=== PATIENT | female | born 1945 | race Caucasian/White ===

== ENCOUNTER 2017-01-12 13:37 | Observation (INO) ==
[2017-01-12] MEDS ORDERED: IOPAMIDOL 100 ML BOTTLE IJ ONE (13:38)
--- NOTE | 2017-01-12 14:18 | Cat Scan Report ---
CLINICAL INFORMATION: Code stroke. Right-sided weakness COMPARISON: None. TECHNIQUE: Axial noncontrast-enhanced images through the brain. FINDINGS: No acute intracranial hemorrhage. No subdural hematoma. No subarachnoid hemorrhage. No intra-axial hematoma. No localized mass effect or midline shift. There is a focal infarction in the head of the right caudate nucleus. There is a lacunar infarction in the right thalamus. These appear relatively well-defined and are probably not acute. Patient's symptoms are right-sided and these lesions should not be causative. No other focal intra-axial attenuation abnormalities. No detectable localized edema. Brainstem and cerebellum are negative. Basilar cisterns are normal. No hyperdense middle cerebral artery sign. No calvarial fracture. There is a lucency at the vertex which is probably a benign venous sam. Temporal bones are negative. IMPRESSION: 1. Not acute right caudate and thalamic infarctions 2. No other abnormality Interpreted and Authenticated by: Nicolás Rodarte 01/12/17
[2017-01-12 14:22] LABS: Basophils # (Auto) 0.1 K/mcL (0.0-0.3); Eosinophils # (Auto) 0.1 K/mcL (0.0-0.7); Eosinophils % (Auto) 1.9 % (0.0-7.0); Granulocytes % (Auto) 48.5 % (38.0-78.0); Lymphocytes # (Auto) 2.2 K/mcL (1.5-4.8); Lymphocytes % (Auto) 40.9 % (15.5-49.0); Mean Cell Volume 86.9 fL (80.0-100.0); Mean Corpuscular HGB Conc 33.6 g/dL (31.0-36.0); Mean Corpuscular Hemoglobin 29.2 pg (26.0-34.0); Monocytes # (Auto) 0.4 K/mcL (0.1-0.9); Monocytes % (Auto) 7.7 % (1.0-12.0); Platelet Count 242 K/mcL (140-440); RBC 4.74 M/mcL (4.00-5.20); Red Cell Distribution Width 14.8 % (11.5-14.5)
[2017-01-12 14:40] LABS: ALT/SGPT 12 U/l (0-40); Albumin/Globulin Ratio 1.6 (1.0-2.3); Alkaline Phosphatase 62 U/L (39-117); Blood Urea Nitrogen 21 mg/dl (8-23)
[2017-01-12 15:17] LABS: Appearance,Urine CLEAR; Bilirubin,Urine NEG (NEG); Color,Urine STRAW; Glucose,Urine (UA) NEGATIVE (NEG); Leukocyte Esterase,Urine NEG /uL (NEG); Nitrate,Urine NEG (NEG); Protein,Urine NEG (NEG); Specific Gravity,Urine 1.006 (1.000-1.035); Urine Blood NEG mg/dL (<0.03); Urobilinogen,Urine NEG (NEG)
[2017-01-12 15:25] LABS: Amphetamine Screen,Urine NONE DETECTED (NONDETECTED); Benzodiazepines Screen,Urine NONE DETECTED (NONDETECTED); Cocaine Screen,Urine NONE DETECTED (NONDETECTED); Opiate Screen,Urine NONE DETECTED (NONDETECTED); Oxycodone, Urine Screen NONE DETECTED (NONDETECTED)
--- NOTE | 2017-01-12 16:14 | Cat Scan Report ---
CLINICAL INFORMATION: Stroke symptoms. Slurred speech TECHNIQUE: 80 mL nonionic contrast material injected intravenously. Axial images through the neck. Scanning performed during arterial phase. MIP and CPR images reviewed COMPARISON: Noncontrast enhanced brain CT scan dated 01/12/2017 FINDINGS: Aortic arch is normal. Origins of the left subclavian artery, left common carotid artery, and nominal artery, right common carotid artery, right subclavian artery are normal. No stenosis. Vertebral arteries are negative. Left vertebral artery is larger than the right. No stenosis or occlusion. Internal carotid arteries are tortuous bilaterally. No significant atherosclerotic plaque. No stenosis. No evidence for ulceration. No cervical soft tissue mass. No solid or cystic mass. Lung apices are negative. Severe degenerative disc disease in the cervical spine. There is reversal of normal cervical lordosis IMPRESSION: Negative carotid CTA. No significant atherosclerotic plaque. No ulceration or stenosis. Interpreted and Authenticated by: Nicolás Rodarte 01/12/17
--- NOTE | 2017-01-12 16:15 | Cat Scan Report ---
CLINICAL INFORMATION: Slurred speech. Code stroke TECHNIQUE: 80 mL nonionic contrast material injected intravenously. Axial images through the brain during arterial phase. MIP reformatted images COMPARISON: Noncontrast enhanced brain CT scan dated 01/12/2017 FINDINGS: Distal cervical, petrous, cavernous, supraclinoid segments of the internal carotid arteries are negative bilaterally. No stenosis. No significant calcification. M1 segments of the middle cerebral arteries and A1 segments of the anterior cerebral arteries are negative. Intracranial vertebral arteries and basilar artery are negative. No stenosis. History cerebral arteries appear normal. No detectable occluded branch. No aneurysm. No arteriovenous malformation. IMPRESSION: Negative MRA of the [place] Interpreted and Authenticated by: Nicolás Rodarte 01/12/17
[2017-01-12] MEDS ORDERED: ATORVASTATIN 40 MG TABLET PO ONE (17:17)
[2017-01-12] MEDS ORDERED: ASPIRIN 325 MG ENTERIC COATED TABLET PO ONE (17:17)
--- NOTE | 2017-01-12 17:18 | Emergency Department Note ---
Neuro HPI - General Chief Complaint: Stroke Symptoms Stated Complaint: Right sided weakness, confusion. Time Seen by Provider: 01/12/17 17:05 Source: patient Mode of arrival: ambulatory Limitations: no limitations - History of Present Illness HPI Narrative: This pleasant 71-year-old female presented to the emergency room in the afternoon having a history of difficulty speaking even near complete difficulty plus surrounding that time some slurred speech. Onset she thought was around 930. indicates that he first noticed this around 615 or 630. She had awoken earlier than this around 530 and it was not noted then. She also complains of dizziness and right arm weakness. She believes her cholesterol has been fine. She has had some right arm pain as well. She denies being on any sleep or medication. She knows of no history of previous stroke, heart disease, diabetes or hypertension. Patient usually takes medications in the morning. wondered if there was a possibility that she might have taken some of his medications but she denies this. - Related Data Home Medications: Home Medications Medication Instructions Recorded Confirmed Amitriptyline [Elavil] 50 mg PO DAILY 01/12/17 01/12/17 Cetirizine [ZyrTEC] 10 mg PO DAILY 01/12/17 01/12/17 Estradiol [Estrace] 1 mg PO PRN PRN 01/12/17 01/12/17 Sertraline HCl [Zoloft] 100 mg PO DAILY 01/12/17 01/12/17 Allergies/Adverse Reactions: Allergies Allergy/AdvReac Type Severity Reaction Status Date / Time nitrofurantoin Allergy Unknown Itching, Verified 06/05/16 15:49 [NITROFURANTOIN] SWELLING Review of Systems Review of Systems: Patient denies dysuria, nausea, vomiting, diarrhea, constipation, cough, phlegm , wheezing, shortness of breath, chest pain, palpitations, heat or cold intolerance, weight changes. She has had some anxiety in the past treated with sertraline but this has improved and she now takes sertraline for her bladder irritation/urgency which is worse in the morning and is due to interstitial cystitis. 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 Absent: tenderness, lymphadenopathy - Respiratory Respiratory exam: Present: normal lung sounds bilaterally. Absent: respiratory distress, wheezes, stridor, accessory muscle use - Cardiovascular Cardiovascular exam: Present: regular rate, normal rhythm. Absent: systolic murmur, diastolic murmur - Abdominal Exam Abdominal exam: Present: soft. Absent: distention, tenderness, guarding, rebound, rigidity - Extremities Exam Extremities exam: Present: normal capillary refill. Absent: pretibial edema - Neurological Exam Neurological exam: Present: alert, oriented X3 - Expanded Neurological Exam Patient oriented to: Present: person, place, time Cerebellar function: finger to nose: Abnormal Right, heel to ambriz: Abnormal Right Motor strength - LUE: 4/5 Motor strength - RUE: 2/5 Motor strength - LLE: 4/5 Motor strength - RLE: 4/5 Upper motor neuron exam: zainab neglect: Absent bilaterally, sensory extinction: Absent bilaterally Sensory exam upper extremity: Normal: light touch, pin prick Sensory exam lower extremity: Normal: light touch, pin prick - Psychiatric Psychiatric exam: Present: flat affect (Mildly). Absent: depressed, agitated - Skin Skin exam: Present: warm, dry Course Vital Signs Temperature 97.1 F 01/12/17 13:38 Pulse Rate 83 01/12/17 13:38 Respiratory Rate 20 01/12/17 13:38 Blood Pressure 114/68 01/12/17 13:38 Pulse Oximetry (%) 98 01/12/17 13:38 Temperature 97.1 F 01/12/17 13:38 Pulse Rate 78 01/12/17 17:11 Respiratory Rate 19 01/12/17 17:11 Blood Pressure 109/65 01/12/17 17:01 Pulse Oximetry (%) 97 01/12/17 17:11 Neuro Symptoms/Deficit - [facility] Narrative Medical decision making narrative: I initially saw patient around 1:45 PM with examination as documented above. She exhibited no change in her findings or symptoms change remaining somewhat to moderately drowsy and right arm weakness and moderate slurred speech but her speech was normal and content and understandable. Eyes remained conjugate. She seemed to understand all very well and was able to communicate relatively well. She denied use of medications except her own. 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 These were not thought to represent her current deficits. Case was discussed with tele-neurology with conclusion that she was outside a window for TPA and that to rule out larger vessel and the possibility of intervention CTA of the head neck would be the next step and these were done and these took a while to come back and were found to be negative. Given that her symptoms are new and no specific findings, additional workup to be considered including echo and/or MRI plus again anticoagulation with at least aspirin suggested and discussed with hospitalist who agrees to accept the patient and to do the additional needed monitoring and/or workup and/or treatment. With patient's drowsiness being significant, a urine drug screen was also obtained and was unremarkable. OF NOTE IS THAT PATIENT IS ON ESTRACE AND THIS MAY BE A POSSIBLE CONSIDERATION IN HER CAUSATIVE FACTORS AND CONSIDER FUTURE DISCONTINUATION. Patient is being admitted to a monitored bed in this hospital. - Lab Data Lab results reviewed: Yes I reviewed the patient's lab results. Result diagrams: 01/12/17 13:58 01/12/17 13:57 Lab Results 01/12/17 01/12/17 01/12/17 Range/Units 13:57 13:58 13:58 WBC 5.4 (4.5-11.0) K/mcL RBC 4.74 (4.00-5.20) M/mcL Hgb 13.8 (12.0-15.0) g/dL Hct 41.1 (36.0-48.0) % POC Hct 41.0 (36.0-48.0) % MCV 86.9 (80.0-100.0) fL MCH 29.2 (26.0-34.0) pg MCHC 33.6 (31.0-36.0) g/dL RDW 14.8 H (11.5-14.5) % Plt Count 242 (140-440) K/mcL MPV 8.6 (7.4-10.4) fL Gran % 48.5 (38.0-78.0) % Lymph % (Auto) 40.9 (15.5-49.0) % [place] % (Auto) 7.7 (1.0-12.0) % Eos % (Auto) 1.9 (0.0-7.0) % Baso % (Auto) 1.0 (0.0-2.0) % Gran # 2.6 (1.8-8.0) K/mcL Lymph # (Auto) 2.2 (1.5-4.8) K/mcL [place] # (Auto) 0.4 (0.1-0.9) K/mcL Eos # (Auto) 0.1 (0.0-0.7) K/mcL Baso # (Auto) 0.1 (0.0-0.3) K/mcL POC PT (11.9-14.5) sec POC INR (0.9-1.2) APTT (20-37) sec POC Sodium 139 (133-145) mmol/L Sodium 140 (133-145) mmol/L POC Potassium 4.0 (3.3-5.1) mmol/L Potassium 4.2 (3.3-5.1) mmol/L POC Chloride 104 (96-108) mmol/L Chloride 105 (96-108) mmol/L Carbon Dioxide 24 (22-30) mmol/L POC Total CO2 26 (22-30) mmol/L Anion Gap 11.0 (8-16) POC BUN 22 (8-23) mg/dl BUN 21 (8-23) mg/dl Creatinine 0.8 (0.6-1.1) mg/dl POC Creatinine 0.8 (0.6-1.1) mg/dl GFR Calculation 75 Glucose 107 H (70-105) mg/dL POC Glucose 105 (70-105) mg/dL Calcium 9.3 (8.6-10.4) mg/dl POC WB Ioniz Calcium 1.27 (1.16-1.32) mmol/L Total Bilirubin 0.3 (0.0-1.0) mg/dL AST 17 (0-37) U/l ALT 12 (0-40) U/l Alkaline Phosphatase 62 (39-117) U/L Troponin T < 0.01 (0-0.03) ng/ml Total Protein 6.5 (5.9-8.4) gm/dL Albumin 4.0 (3.2-5.2) gm/dL Globulin 2.5 (2.2-3.7) gm/dL Albumin/Globulin Ratio 1.6 (1.0-2.3) Urine Color Urine Appearance Urine pH (5.0-9.0) Ur Specific [place] (1.000-1.035) Urine Protein (NEG) mg/dL Urine Glucose (UA) (NEG) mg/dL Urine Ketones (NEG) mg/dL Urine Occult Blood (<0.03) mg/dL Urine Nitrate (NEG) Urine Bilirubin (NEG) mg/dL Urine Urobilinogen (NEG) mg/dL Ur Leukocyte Esterase (NEG) /uL Ur Culture Indicated? Urine Opiates Screen (NONDETECTED) Ur Oxycodone Screen (NONDETECTED) Urine Methadone Screen (NONDETECTED) Ur Barbiturates Screen (NONDETECTED) Ur Phencyclidine Scrn (NONDETECTED) Ur Amphetamines Screen (NONDETECTED) U Benzodiazepines Scrn (NONDETECTED) Urine Cocaine Screen (NONDETECTED) U Marijuana (THC) Screen (NONDETECTED) 01/12/17 01/12/17 01/12/17 Range/Units 14:18 14:43 14:43 WBC (4.5-11.0) K/mcL RBC (4.00-5.20) M/mcL Hgb (12.0-15.0) g/dL Hct (36.0-48.0) % POC Hct (36.0-48.0) % MCV (80.0-100.0) fL MCH (26.0-34.0) pg MCHC (31.0-36.0) g/dL RDW (11.5-14.5) % Plt Count (140-440) K/mcL MPV (7.4-10.4) fL Gran % (38.0-78.0) % Lymph % (Auto) (15.5-49.0) % [place] % (Auto) (1.0-12.0) % Eos % (Auto) (0.0-7.0) % Baso % (Auto) (0.0-2.0) % Gran # (1.8-8.0) K/mcL Lymph # (Auto) (1.5-4.8) K/mcL [place] # (Auto) (0.1-0.9) K/mcL Eos # (Auto) (0.0-0.7) K/mcL Baso # (Auto) (0.0-0.3) K/mcL POC PT 14.1 (11.9-14.5) sec POC INR 1.2 (0.9-1.2) APTT 30 (20-37) sec POC Sodium (133-145) mmol/L Sodium (133-145) mmol/L POC Potassium (3.3-5.1) mmol/L Potassium (3.3-5.1) mmol/L POC Chloride (96-108) mmol/L Chloride (96-108) mmol/L Carbon Dioxide (22-30) mmol/L POC Total CO2 (22-30) mmol/L Anion Gap (8-16) POC BUN (8-23) mg/dl BUN (8-23) mg/dl Creatinine (0.6-1.1) mg/dl POC Creatinine (0.6-1.1) mg/dl GFR Calculation Glucose (70-105) mg/dL POC Glucose (70-105) mg/dL Calcium (8.6-10.4) mg/dl POC WB Ioniz Calcium (1.16-1.32) mmol/L Total Bilirubin (0.0-1.0) mg/dL AST (0-37) U/l ALT (0-40) U/l Alkaline Phosphatase (39-117) U/L Troponin T (0-0.03) ng/ml Total Protein (5.9-8.4) gm/dL Albumin (3.2-5.2) gm/dL Globulin (2.2-3.7) gm/dL Albumin/Globulin Ratio (1.0-2.3) Urine Color Straw Urine Appearance Clear Urine pH 6.0 (5.0-9.0) Ur Specific [place] 1.006 (1.000-1.035) Urine Protein Neg (NEG) mg/dL Urine Glucose (UA) Negative (NEG) mg/dL Urine Ketones Neg (NEG) mg/dL Urine Occult Blood Neg (<0.03) mg/dL Urine Nitrate Neg (NEG) Urine Bilirubin Neg (NEG) mg/dL Urine Urobilinogen Neg (NEG) mg/dL Ur Leukocyte Esterase Neg (NEG) /uL Ur Culture Indicated? No Urine Opiates Screen None detected (NONDETECTED) Ur Oxycodone Screen None detected (NONDETECTED) Urine Methadone Screen None detected (NONDETECTED) Ur Barbiturates Screen None detected (NONDETECTED) Ur Phencyclidine Scrn None detected (NONDETECTED) Ur Amphetamines Screen None detected (NONDETECTED) U Benzodiazepines Scrn None detected (NONDETECTED) Urine Cocaine Screen None detected (NONDETECTED) U Marijuana (THC) Screen None detected (NONDETECTED) - EKG Data EKG attestation: Yes I reviewed and interpreted this EKG. Disposition Pt seen by [employer] SUPERINTENDENT/PA only: No Clinical Impression: Acute CVA (cerebrovascular accident), History of CVA (cerebrovascular accident) , Drowsiness Disposition: Xfer As Inpt ([facility]) Condition: Fair Referrals: Lisa Henry MD [Primary Care Provider] -
[2017-01-12] MEDS ORDERED: POTASSIUM CHLORIDE 20 MEQ PACKET PO PRN (19:19)
[2017-01-12] MEDS ORDERED: 0.9 % SODIUM CHLORIDE 1,000 ML IV SCH (19:19)
[2017-01-12] MEDS ORDERED: ACETAMINOPHEN 1,000 MG/100 ML BOTTLE IV PRN (19:19)
[2017-01-12] MEDS ORDERED: ONDANSETRON 4 MG/2 ML VIAL IV PRN (19:19)
[2017-01-12] MEDS ORDERED: MAGNESIUM HYDROXIDE 30 ML ORAL.SUSP PO PRN (19:19)
[2017-01-12] MEDS ORDERED: guaiFENesin/CODEINE 10 ML UDC PO PRN (19:19)
[2017-01-12] MEDS ORDERED: traZODone HCL 50 MG TABLET PO PRN (19:19)
[2017-01-12] MEDS ORDERED: BISACODYL 10 MG SUPP.RECT PR PRN (19:19)
[2017-01-12] MEDS ORDERED: MAGNESIUM SULFATE 2 GM/50 ML BAG IV PRN (19:19)
[2017-01-12] MEDS ORDERED: ACETAMINOPHEN 325 MG TABLET PO PRN (19:19)
--- NOTE | 2017-01-12 19:32 | Internal Med History&Physical ---
Medical - H&P: [facility] Patient information: Note initiated : 01/12/17 at 7:28 pm Service Date, if different from initiated Date: [] Patient: Hailey Luis a 71 y/o F admitted on 01/12/17 for Right sided weakness, confusion.. Chief Complaint: [] Chief complaint: right sided weakness History of present illness: Ms. Luis is a 71 year old F who developed right-sided weakness confusion and difficulty balancing that started around 9 AM this morning. She had associated slurred speech. [facility]. nitial workup including CT angiogram head and neck along with CT head was negative.patient was started on aspirin and statin. Stroke neurology was consulted and per ED physician patient would not the candidate for TPA. Patient 's symptoms have significantly improved in the ED Hospitalist service was then consulted For admission and TIA evaluation. ppetite examination patient is alert oriented. She denies any active distress. She is accompanied with her wIll. however he was not available during my visit. Patient is able to answer most of the questions however there wasoccasional slurring of speech. She denies thunderclap headache unilateral weakness, fall, seizure-like episode, double vision. She further denies hearing difficulties the weight loss gland or swelling. She denies recent NSAID or sick contacts. She denies chest palpitations during neck pain or prior similar episodes. Review of systems A 10 point review systems was performed and is negative except as discussed above Medical - H&P: PMH Medical history: neuropathy seasonal allergy disorder anxiety disorder Pertinent family history: grandfather coronary artery disease Social history: lives with will No history of smoking or alcoholism Smoking status: Never smoker Drug use: none Alcohol use: none Medical - H&P: Meds Home Medications Medication Instructions Recorded Confirmed Type Amitriptyline [Elavil] 50 mg PO DAILY 01/12/17 01/12/17 History Cetirizine [ZyrTEC] 10 mg PO DAILY 01/12/17 01/12/17 History Estradiol [Estrace] 1 mg PO PRN PRN 01/12/17 01/12/17 History Sertraline HCl [Zoloft] 100 mg PO DAILY 01/12/17 01/12/17 History Allergies Allergy/AdvReac Type Severity Reaction Status Date / Time nitrofurantoin Allergy Unknown Itching, Verified 06/05/16 15:49 [NITROFURANTOIN] SWELLING Medical - H&P: Exam - Constitutional Vitals: Temp Pulse Resp BP Pulse Ox 97.1 F 87 16 120/57 99 01/12/17 18:48 01/12/17 18:48 01/12/17 18:48 01/12/17 18:48 01/12/17 18:48 General appearance: no acute distress, thin Exam: pupils symmetric oral cavity dry No ear or nose discharge Head normocephalic. Atraumatic neck submandibular lymphadenopathy S1 and [id number] nonlabored breathing Abdomen soft No cyanosis clubbing or joint swelling No suspicious skin lesion Alert cooperative no anxiety Neuro normal heart function Minimally slurred speech cranial nerves unremarkable symmetrical strength and sensation cerebellar signs negative Medical - H&P: Reslt - Labs CBC & Chem 7: 01/12/17 13:58 01/12/17 13:57 Medical - H&P: A/P (1) History of CVA (cerebrovascular accident) Current visit: Yes Status: Acute * Acute CVA/TIAcT head unremarkable except for right thalamic remote infarct.mRI brain/Echo pendingCT angiogram head and neck negative. Telemetry observation admit. Aggressive bowel protocol. Aspirin statin * Anxiety disorder continue sertraline/amitriptyline * Full code Plan * Stroke workup as above * Aspirin and statin
[2017-01-12] MEDS ORDERED: SENNOSIDES/DOCUSATE SODIUM 1 TAB TABLET PO SCH (21:00)
[2017-01-12] MEDS ORDERED: AMITRIPTYLINE 25 MG TABLET PO SCH (21:00)
[2017-01-12] MEDS ORDERED: SIMVASTATIN 40 MG TABLET PO SCH (21:00)
[2017-01-12] MEDS: DOCUSATE SODIUM 100 MG CAPSULE PO SCH (21:29)
[2017-01-12] MEDS: 0.9 % SODIUM CHLORIDE 10 ML SYRINGE IV SCH (21:29)
[2017-01-13] MEDS: 0.9 % SODIUM CHLORIDE 10 ML SYRINGE IV SCH (05:17)
[2017-01-13 06:40] LABS: Mean Cell Volume 87.6 fL (80.0-100.0); Mean Corpuscular HGB Conc 34.2 g/dL (31.0-36.0); Mean Corpuscular Hemoglobin 29.9 pg (26.0-34.0); Platelet Count 223 K/mcL (140-440); RBC 4.26 M/mcL (4.00-5.20); Red Cell Distribution Width 14.9 % (11.5-14.5)
[2017-01-13 06:55] LABS: ALT/SGPT 10 U/l (0-40); Albumin 3.4 gm/dL (3.2-5.2); Albumin/Globulin Ratio 1.5 (1.0-2.3); Alkaline Phosphatase 52 U/L (39-117); Bilirubin,Direct < 0.2 mg/dL (0.0-0.3); Blood Urea Nitrogen 27 mg/dl (8-23); Gamma Glutamyl Transpeptidase 12 U/L (5-36); Magnesium 1.9 mg/dL (1.6-2.5)
[2017-01-13 08:07] LABS: Eosinophils % (Manual) 1 % (0-7); Lymphocytes % 40 % (15-49); Monocytes % (Manual) 11 % (1-12); Myelocytes % 1 % (0-0); Platelet Estimate NORMAL (NORMAL); RBC Morphology NORMAL (NORMAL); Segmented Neutrophils % 45 % (38-78)
[2017-01-13] MEDS: DOCUSATE SODIUM 100 MG CAPSULE PO SCH (08:26)
[2017-01-13] MEDS ORDERED: ASPIRIN 81 MG TAB.CHEW CHEWED SCH (09:00)
[2017-01-13] MEDS ORDERED: SERTRALINE 50 MG TABLET PO SCH (09:00)
[2017-01-13] MEDS ORDERED: CETIRIZINE 10 MG TABLET PO SCH (09:00)
[2017-01-13] MEDS ORDERED: MULTIVIT,THER IRON,CA,FA & MIN 1 TABLET PO SCH (09:00)
--- NOTE | 2017-01-13 09:46 | Magnetic Resonance Report ---
CLINICAL INFORMATION: Right-sided numbness. Possible cerebral infarction TECHNIQUE: Sagittal, axial, coronal images of the brain COMPARISON: Previous CT and CTA dated 01/12/2017 FINDINGS: No restricted diffusion. No acute infarction. No significant susceptibility. No hemorrhagic abnormality. FLAIR and T2-weighted images demonstrate white matter abnormality in both cerebral hemispheres. There are multiple foci of increased signal intensity in the subcortical and periventricular white matter. In the periventricular white matter there are focal abnormalities which are perpendicularly oriented to the ventricular surfaces. Findings are nonspecific. Clinical correlation for history of demyelinating disease recommended. Findings may also be due to a small vessel ischemic change or vasculitis. Findings are abnormal for age. No localized mass effect. No midline shift. Brain volume is within normal limits. No hydrocephalus. Focal signal abnormality within the right cerebellar hemisphere consistent with old infarction. No acute abnormalities. Brainstem is negative. No extra-axial, intracranial abnormality. Normal flow void within vessels at the base of the brain. Paranasal sinuses and temporal bones are negative IMPRESSION: 1. No acute infarction 2. White matter abnormality. Demyelinating is possible. Findings are nonspecific Interpreted and Authenticated by: Nicolás Rodarte 01/13/17
--- NOTE | 2017-01-13 10:34 | Discharge Summary ---
Medical - DS: Prov Patient information: Note initiated : 01/13/17 at 10:31 am Service Date, if different from initiated Date: [] Patient: Hailey Luis 71 y/o F admitted on 01/12/17 for Right sided weakness, confusion.. Chief Complaint: [] Date of admission: 01/12/17 19:08 Discharge date: 01/13/17 Primary care physician: Lisa Henry Medical - DS: Meds - Discharge Medications Prescriptions: Aspirin 324 mg CHEWED DAILY #30 Simvastatin [Zocor] 40 mg PO HS #30 tablet Active and Home Medications: Home Medications Amitriptyline [Elavil] 50 mg PO DAILY 01/12/17 [History Confirmed 01/12/17 Last Taken Unknown] Cetirizine [ZyrTEC] 10 mg PO DAILY 01/12/17 [History Confirmed 01/12/17 Last Taken Unknown] Estradiol [Estrace] 1 mg PO PRN PRN 01/12/17 [History Confirmed 01/12/17 Last Taken Unknown] Sertraline HCl [Zoloft] 100 mg PO DAILY 01/12/17 [History Confirmed 01/12/17 Last Taken Unknown] Vit A/Vit C/Vit E/Zinc/Copper [Preservision [employer] Softgel] 2 capsule PO HS 01/12 [History Confirmed 01/12/17 Last Taken Unknown] Aspirin 324 mg CHEWED DAILY #30 01/13/17 [Rx Last Taken Unknown] Simvastatin [Zocor] 40 mg PO HS #30 tablet 01/13/17 [Rx Last Taken Unknown] Medical - DS: Hosp Hospital course: Discharge diagnosis * Acute CVA/TIA- CT head, CT angiogram head and neck and MRI brain unremarkable except for remote right thalamic infarct. No overnight telemetry events. Echo unremarkable EF 5560% and normal left atrium. On aspirin and statin. Discharging with advice to follow with neurology in light of MRI findings suspicious for demyelination process * Anxiety disorder managed on sertraline [facility] Ms. Luis is a 71 year old F who developed right-sided weakness confusion and difficulty balancing that started around 9 AM this morning. She had associated slurred speech. Patient came to [facility] ER for further evaluation. nitial workup including CT angiogram head and neck along with CT head was negative.patient was started on aspirin and statin. Stroke neurology was consulted and per ED physician patient would not the candidate for TPA. Patient 's symptoms have significantly improved in the ED Hospitalist service was then consulted For admission and TIA evaluation. ppetite examination patient is alert oriented. She denies any active distress. She is accompanied with her wIll. however he was not available during my visit. Patient is able to answer most of the questions however there wasoccasional slurring of speech. She denies thunderclap headache unilateral weakness, fall, seizure-like episode, double vision. She further denies hearing difficulties the weight loss gland or swelling. She denies recent NSAID or sick contacts. She denies chest palpitations during neck pain or prior similar episodes. 01/13-atient doing well. No overnight events. No concerns per staff. No telemetry events. No further neurological changes. Patient feels at baseline and requesting discharge. Negative neuroimaging. On aspirin and statin. Recommend follow-up with neurology for evaluation of possible demyelination process as evident on MRI. continue aspirin and statin for future stroke prophylaxis Discharge diagnosis: TIA - Time Spent with Patient Total time spent providing and/or coordinating discharge services: Greater than 30 minutes Medical - DS: Exam - Constitutional Vitals: Vital Signs Temp Pulse Pulse Resp BP BP Pulse Ox 01/13/17 10:24 97.7 F 14 111/68 98 01/13/17 04:04 110/69 01/13/17 04:00 97.6 F 68 18 110/69 97 01/13/17 00:00 98.6 F 68 16 99 01/12/17 19:25 72 118/73 100 01/12/17 19:19 97.3 F 72 18 118/73 100 01/12/17 19:16 102/68 Intake and Output 01/12/17 01/13/17 01/13/17 21:59 05:59 13:59 Intake Total 120 / 120 200 / 200 Output Total 230 / 230 350 / 350 150 / 150 Balance -110 / -110 -350 / -350 50 / 50 Intake: Oral 120 / 120 200 / 200 Output: Void Amount 230 / 230 350 / 350 150 / 150 Other: Meal Dinner Breakfast Percent of Meal Consumed 50% 100% Weight 138 lb 14.4 oz Medical - DS: Data Labs on day of discharge: Labs from last 24 hours 01/13/17 01/13/17 03:58 03:58 WBC 4.5 RBC 4.26 Hgb 12.8 Hct 37.3 MCV 87.6 MCH 29.9 MCHC 34.2 RDW 14.9 H Plt Count 223 MPV 8.6 Total Counted 100 Seg Neutrophils % 45 Band Neutrophils % Not Reportable Lymphocytes % 40 Monocytes % (Manual) 11 Eosinophils % (Manual) 1 Myelocytes % 1 H Reactive Lymphocytes 2 Platelet Estimate Normal RBC Morphology Normal Sodium 140 Potassium 3.9 Chloride 104 Carbon Dioxide 24 Anion Gap 12.0 BUN 27 H Creatinine 1.0 GFR Calculation 57 Glucose 89 Uric Acid 4.0 Calcium 9.2 Phosphorus 3.7 Magnesium 1.9 Total Bilirubin 0.2 Direct Bilirubin < 0.2 GGT 12 AST 14 ALT 10 Alkaline Phosphatase 52 Lactate Dehydrogenase 128 Total Protein 5.7 L Albumin 3.4 Globulin 2.3 Albumin/Globulin Ratio 1.5 Triglycerides 96 TSH 3.17 Medical - DS: A/P - Patient/Caregiver Discharge Instructions Activity: increase activity as tolerated Diet: Regular Diet Additional Instructions: continue aspirin and statin for stroke prophylaxis return to ER if worsening neurological changes follow-up primary care physician 5 days--See scheduled appointment recommend follow-up with neurology in 2-4 weeks for evaluation of demyelination process as evident on MRI.--Dr. Fontenot office will contact you to schedule an appointment. Prescriptions: Aspirin 324 mg CHEWED DAILY #30 Simvastatin [Zocor] 40 mg PO HS #30 tablet - Problem Maintenance (1) History of CVA (cerebrovascular accident) Status: Acute - Follow up Plan Follow up with: Carolyn Fontenot MD [Physician] - (Dr. Fontenot office will contact you to schedule an appointment after reviewing your chart.) Lisa Henry MD [Primary Care Provider] - 01/18/17 10:00 am Disposition: Home, Self-Care Prognosis: Fair Rehab Potential: Fair I certify that the patient requires SNF services: No Overall status at discharge: patient is progressing back to baseline Medical - DS: Qual - VTE Deep Vein Thrombosis/Pulmonary Embolism Present on Admission: No
== END 2017-01-13 12:30 | disposition home or self-care (01) ==
LOC: ICU 13:37 → ED 13:37 → ICU 19:08
PROVIDERS: ADMIT Internal Medicine; ATTEND Internal Medicine